=== PATIENT | female | born 1935 | race Caucasian/White ===

== ENCOUNTER 2020-08-24 12:17 | Inpatient (IN) | payer BC ==
[~2020-08-24] VITALS: Ht 162.6 cm; Wt 75.7 kg
[2020-08-24] MEDS ORDERED: COREG (12:31)
[2020-08-24] MEDS ORDERED: LIPITOR (12:31)
[2020-08-24] MEDS ORDERED: ELIQUIS (12:31)
[2020-08-24] MEDS ORDERED: IV NORMAL SALINE 500 ML BAG IV ONE (13:00)
[2020-08-24] MEDS ORDERED: ASPI81TA31 PO (13:03)
[2020-08-24] MEDS ORDERED: CENTRUM SILVER (13:03)
[2020-08-24 13:29] LABS: BASOPHILS % (AUTO) 0.1 % (0.0-2.0); EOSINOPHILS # (AUTO) 0.1 K/uL (0.0-0.7); EOSINOPHILS % (AUTO) 1.6 % (0.0-7.0); HEMATOCRIT 35.1 % (31.2-41.9); HEMOGLOBIN 11.3 g/dL (10.9-14.3); LYMPHOCYTES # (AUTO) 0.8 K/uL (20.0-40.0); LYMPHOCYTES % (AUTO) 11.1 % (20.5-51.5); MEAN CORPUSCULAR HEMOGLOBIN 28.4 uug (24.7-32.8); MEAN CORPUSCULAR HGB CONC 32 g/dL (32.3-35.6); MONOCYTES # (AUTO) 0.6 K/uL (2.0-10.0); MONOCYTES % (AUTO) 8.4 % (0.0-11.0); NEUTROPHILS # (AUTO) 5.9 K/uL (1.8-8.9); NEUTROPHILS % (AUTO) 78.8 % (38.5-71.5); PLATELET COUNT (AUTO) 325 K/uL (179-408); RED BLOOD CELL COUNT(AUTO) 3.99 MIL/uL (3.63-4.92); WHITE BLOOD COUNT (AUTO) 7.5 K/uL (3.8-11.8)
[2020-08-24 14:03] LABS: BILIRUBIN,DIRECT 0.2 mg/dL (0.0-0.2); BILIRUBIN,TOTAL 0.7 mg/dL (0.2-1.0); CREATININE 0.6 mg/dL (0.6-1.3); POTASSIUM 3.5 mmol/L (3.5-5.1); TOTAL PROTEIN, SERUM 7.4 g/dL (6.4-8.2)
[2020-08-24] MEDS ORDERED: FUROSEMIDE 40 MG/4 ML VIAL IV ONE (14:45)
[2020-08-24] MEDS ORDERED: FUROSEMIDE 40 MG/4 ML VIAL ONE (14:50)
[2020-08-24] MEDS ORDERED: NITROGLYCERIN 0.4 MG/TAB BOTTLE SL ONE ×2 (15:16→15:17)
--- NOTE | 2020-08-24 15:35 | NUR ---
SAROJ GONZALEZ ADMITTED PT TO TELE.
--- NOTE | 2020-08-24 15:36 | NUR ---
PT AMBULATED TO BATHROOM X2 WITH ASSISSTANCE.
[2020-08-24 16:02] LABS: *BILIRUBIN,URIN NEGATIVE (NEGATIVE); *BLOOD, URINE NEGATIVE (NEGATIVE); *CLARITY,URINE CLEAR (CLEAR); *COLOR,URINE YELLOW (YELLOW); *KETONES,URINE NEGATIVE (NEGATIVE); *UROBILINOGEN,URINE 0.2 E.U./dl (NORMAL); LEUKOCYTE ESTERASE ,URINE NEGATIVE (NEGATIVE); NITRITE, URINE NEGATIVE (NEGATIVE); UGLUCOSE NEGATIVE (NEGATIVE)
--- NOTE | 2020-08-24 16:20 | NUR ---
GAVE REPORT TO VALENTÍN TO TRANSFER THE PT TO FLOOR
--- NOTE | 2020-08-24 16:26 | NUR ---
PT DAUGHTER HERE REQUESTING TO TAKE THE PT TO [facility] WHERE HIS DOCTOR IS.
[2020-08-24] MEDS ORDERED: ONDANSETRON 4 MG/2 ML VIAL IV PRN (17:00)
[2020-08-24] MEDS ORDERED: ACETAMINOPHEN 325 MG TABLET PO PRN (17:00)
[2020-08-24] MEDS ORDERED: MAGNESIUM HYDROXIDE 30 ML LIQUID UDC PO PRN (17:00)
[2020-08-24] MEDS ORDERED: Z GUARD REMEDY PASTE 57 GM TUBE TOP PRN (17:00)
--- NOTE | 2020-08-24 17:00 | NUR ---
PT DAUGHTER SAID THAT THEY DECIDED TO KEEP THE PT HERE.
--- NOTE | 2020-08-24 17:04 | NUR ---
PT DAUGHTER STILL WORKING ON TAKING THE PT AMA.
[2020-08-24] MEDS: CEFTRIAXONE 1 G in IV DEXTROSE 5% 50 ML IV SCH (17:15)
[2020-08-24] MEDS ORDERED: CEFTRIAXONE /D5W 50ML IVPB **ER PYXIS IV ONE (17:17)
--- NOTE | 2020-08-24 17:19 | NUR ---
DR. KYLE AT BEDSIDE TALKING TO PT AND DAUGHTER.
--- NOTE | 2020-08-24 17:26 | NUR ---
PT DAUGHTER BROUGHT THE MED LIST, WILL UPDATE THE MED RECON.
--- NOTE | 2020-08-24 17:28 | NUR ---
PT DAUGHTER INFO: EDMOND SANCHEZ [phone]
[2020-08-24] MEDS ORDERED: FUROSEMIDE 40 MG/4 ML VIAL IV SCH (17:30)
--- NOTE | 2020-08-24 17:30 | NUR ---
PT TRANSFERED TO FLOOR IN STABLE CONDITION.
[2020-08-24] MEDS ORDERED: CLON0.1T PO (17:33)
[2020-08-24] MEDS ORDERED: LISI40TA4 PO (17:33)
[2020-08-24] MEDS ORDERED: ATOR20TA PO (17:33)
[2020-08-24] MEDS ORDERED: MAGN400O6 PO (17:33)
[2020-08-24] MEDS ORDERED: ACET-2605 PO (17:33)
[2020-08-24] MEDS ORDERED: AMLO-212 PO (17:33)
[2020-08-24] MEDS ORDERED: APIX2.5T PO (17:33)
[2020-08-24] MEDS ORDERED: ZOLP5TAB2 PO (17:33)
[2020-08-24] MEDS ORDERED: TRAM50TA2 PO (17:33)
[2020-08-24] MEDS ORDERED: CARV3.12 PO (17:33)
[2020-08-24] MEDS ORDERED: INSU100V39 SQ (17:33)
[2020-08-24] MEDS ORDERED: HYDR-4384 PO (17:33)
--- NOTE | 2020-08-24 18:00 | NUR ---
RECEIVED PATIENT FROM ED BY DAMIEN TO ROOM 319 WITH DX OF CHF PLACED INTO BED FIXED AND MADE COMFORTABLE PATIENT IS ALERT SPEAKS SOME LITHUANIAN MOSTLY BARBADIAN ORIENTED TO ROOM AND FACILITY PROTOCOL DR BANKS AWARE THAT PATIENT IS HERE.
[2020-08-24] MEDS ORDERED: CLONIDINE HCL 0.1 MG TABLET PO PRN (18:15)
[2020-08-24] MEDS ORDERED: HYDROCODONE/APAP 5-325MG TABLET PO PRN (18:15)
[2020-08-24] MEDS ORDERED: ZOLPIDEM 5 MG TABLET PO PRN (18:15)
[2020-08-24] MEDS ORDERED: TRAMADOL HCL 50 MG TABLET PO PRN (18:15)
[2020-08-24] MEDS ORDERED: AMLODIPINE 5 MG TABLET PO SCH (18:15)
[2020-08-24] MEDS ORDERED: LISINOPRIL 20 MG TABLET PO SCH (18:30)
[2020-08-24] MEDS ORDERED: APIXABAN 2.5 MG TABLET PO SCH (18:30)
--- NOTE | 2020-08-24 18:31 | NUR ---
PER PATIENTS GRAND DAUGHTER GIULIA PATIENT IS ON [employer] MVI AND ASA BUT DID NOT KNOW THE DOSE DR MCCALL AWARE STATED WILL ORDER.
[2020-08-24 18:33] VITALS: BP 154/99
[2020-08-24] MEDS: ASPIRIN 81 MG TAB.CHEW PO SCH (18:42)
[2020-08-24 20:00] VITALS: BP 154/97
[2020-08-24] MEDS ORDERED: TICAGRELOR 90 MG TABLET PO SCH (20:00)
[2020-08-24] MEDS: AZITHROMYCIN IV 500 MG in IV DEXTROSE 5% 250 ML IV SCH (20:15)
[2020-08-24] MEDS ORDERED: ATORVASTATIN 20 MG TABLET PO SCH (21:00)
[2020-08-24] MEDS ORDERED: CARVEDILOL 3.125 MG TABLET PO SCH (21:00)
[2020-08-24] MEDS ORDERED: ENOXAPARIN SODIUM 40 MG/0.4 ML DISP.SYRIN SQ SCH (21:00)
[2020-08-25] VITALS: BP 128/77
--- NOTE | 2020-08-25 00:25 | NUR ---
Received pt resting in bed. AAO x3. On 3L O2 via NC, no acute distress noted. Denies pain/ discomfort. Due meds given as ordered. IV on right AC, received IV atb. Safety measures maintained. Call light and personal items within reach. Will continue to monitor.
[2020-08-25 04:00] VITALS: BP 130/78
[2020-08-25 08:00] LABS: BASOPHILS % (AUTO) 0.3 % (0.0-2.0); EOSINOPHILS # (AUTO) 0.2 K/uL (0.0-0.7); EOSINOPHILS % (AUTO) 2.2 % (0.0-7.0); HEMATOCRIT 32.1 % (31.2-41.9); HEMOGLOBIN 10.7 g/dL (10.9-14.3); LYMPHOCYTES # (AUTO) 0.8 K/uL (20.0-40.0); MEAN CORPUSCULAR HEMOGLOBIN 29.2 uug (24.7-32.8); MEAN CORPUSCULAR HGB CONC 33 g/dL (32.3-35.6); MEAN CORPUSCULAR VOLUME 87.7 fL (75.5-95.3); MONOCYTES # (AUTO) 0.6 K/uL (2.0-10.0); MONOCYTES % (AUTO) 8.2 % (0.0-11.0); NEUTROPHILS # (AUTO) 5.8 K/uL (1.8-8.9); NEUTROPHILS % (AUTO) 78.3 % (38.5-71.5); PLATELET COUNT (AUTO) 282 K/uL (179-408); RED BLOOD CELL COUNT(AUTO) 3.66 MIL/uL (3.63-4.92); WHITE BLOOD COUNT (AUTO) 7.5 K/uL (3.8-11.8)
[2020-08-25 08:04] LABS: BILIRUBIN,TOTAL 0.8 mg/dL (0.2-1.0); CREATININE 0.6 mg/dL (0.6-1.3); MAGNESIUM 1.7 mg/dL (1.8-2.4); PHOSPHOROUS 3.9 mg/dL (2.5-4.9); POTASSIUM 3.5 mmol/L (3.5-5.1); TOTAL PROTEIN, SERUM 6.6 g/dL (6.4-8.2)
[2020-08-25] MEDS: FUROSEMIDE 40 MG/4 ML VIAL IV SCH ×2 (08:54→17:08)
[2020-08-25] MEDS: ASPIRIN 81 MG TAB.CHEW PO SCH (08:54)
[2020-08-25] MEDS: TICAGRELOR 90 MG TABLET PO SCH ×2 (08:54→17:08)
[2020-08-25] MEDS: LISINOPRIL 20 MG TABLET PO SCH (08:56)
--- NOTE | 2020-08-25 09:00 | NUR ---
RECEIVED PATIENT IN BED AWAKE ALERT ORIENTED FORGETFUL AT TIMES BUT VERY PLEASANT AND NICE DENIES PAIN OR DISCOMFORTS DANK THIS TIME SHE IS ON O2 AT 2L/M BY NASAL CANULLA WITH SATS AT 94-95 PERCENT DENIES SOB AT THIS TIME CALL LIGHTS AND PERSONAL BELONGINGS ARE WITHIN EASY REACH WILL CONTINUE TO OBSERVE.
[2020-08-25] MEDS: CARVEDILOL 3.125 MG TABLET PO SCH ×2 (09:36→21:06)
[2020-08-25] MEDS: APIXABAN 2.5 MG TABLET PO SCH ×2 (09:46→17:36)
[2020-08-25] MEDS: MAGNESIUM SULFATE/D5W 100 ML IV SCH ×2 (12:12→13:24)
[2020-08-25 12:29] VITALS: BP 116/61
[2020-08-25 15:47] VITALS: BP 107/80
[2020-08-25] MEDS: CEFTRIAXONE 1 G in IV DEXTROSE 5% 50 ML IV SCH (17:04)
[2020-08-25] MEDS: AZITHROMYCIN IV 500 MG in IV DEXTROSE 5% 250 ML IV SCH (17:36)
--- NOTE | 2020-08-25 18:00 | NUR ---
PATIENT TOLERATED IV ANTIBIOTICS ORDERED WITH NO ADVERSE OR ALLERGIC REACTIONS AT THIS TIME ABLE TO AMBULATE TO THE BATHROOM WITH SBA WITH SLOW STEADY GAIT MADE COMFORTABLE NWILL CONTINUE TO OBSERVE.
[2020-08-25 20:00] VITALS: BP 129/78
[2020-08-25] MEDS ORDERED: ATORVASTATIN 20 MG TABLET PO SCH (21:00)
--- NOTE | 2020-08-25 21:48 | NUR ---
Received pt resting in bed. AAO x4. On 3L O2 via NC, no acute distress noted. Denies pain/ discomfort. Pt has IV on right AC hep lock. Due meds given as ordered. Pt ambulates to the bathroom, O2 needed on exertion. Safety measures maintained. Call light and personal items within reach. Will continue to monitor.
[2020-08-26] VITALS: BP 126/79
[2020-08-26 05:08] VITALS: BP 107/56
[2020-08-26 08:00] VITALS: BP 126/82
[2020-08-26] MEDS: FUROSEMIDE 40 MG/4 ML VIAL IV SCH (08:32)
[2020-08-26] MEDS: TICAGRELOR 90 MG TABLET PO SCH (08:33)
[2020-08-26] MEDS: APIXABAN 2.5 MG TABLET PO SCH (08:33)
[2020-08-26] MEDS: ASPIRIN 81 MG TAB.CHEW PO SCH (08:34)
[2020-08-26] MEDS: CARVEDILOL 3.125 MG TABLET PO SCH (08:35)
[2020-08-26] MEDS: LISINOPRIL 20 MG TABLET PO SCH (08:36)
[2020-08-26 11:00] VITALS: BP 108/65
[2020-08-26 11:50] LABS: BASOPHILS # (AUTO) 0.1 K/uL (0.0-8.0); BASOPHILS % (AUTO) 0.7 % (0.0-2.0); EOSINOPHILS # (AUTO) 0.2 K/uL (0.0-0.7); EOSINOPHILS % (AUTO) 2.6 % (0.0-7.0); HEMATOCRIT 34.7 % (31.2-41.9); HEMOGLOBIN 11.1 g/dL (10.9-14.3); LYMPHOCYTES % (AUTO) 11.6 % (20.5-51.5); MEAN CORPUSCULAR HEMOGLOBIN 28.5 uug (24.7-32.8); MEAN CORPUSCULAR HGB CONC 32 g/dL (32.3-35.6); MEAN CORPUSCULAR VOLUME 89.2 fL (75.5-95.3); MONOCYTES # (AUTO) 0.7 K/uL (2.0-10.0); MONOCYTES % (AUTO) 8.1 % (0.0-11.0); NEUTROPHILS # (AUTO) 6.3 K/uL (1.8-8.9); PLATELET COUNT (AUTO) 324 K/uL (179-408); RED BLOOD CELL COUNT(AUTO) 3.89 MIL/uL (3.63-4.92); WHITE BLOOD COUNT (AUTO) 8.2 K/uL (3.8-11.8)
[2020-08-26 12:15] LABS: BILIRUBIN,TOTAL 0.6 mg/dL (0.2-1.0); CREATININE 0.7 mg/dL (0.6-1.3); POTASSIUM 3.8 mmol/L (3.5-5.1); TOTAL PROTEIN, SERUM 7.3 g/dL (6.4-8.2)
--- NOTE | 2020-08-26 17:07 | NUR ---
D/C PICKED UP BY GRANDDAUGHTER. D/C INSTRUCTIONS GIVEN TO PT AND GRANDDAUGHTER BOTH VERBALIZED UNDERSTANDING OF INSTRUCTIONS
[2020-08-27] MEDS ORDERED: FUROSEMIDE 40 MG TABLET PO SCH (09:00)
== END 2020-08-26 15:20 | disposition home or self-care (01) | DRG 291 ==
LOC: ER 12:17 → TRANSITION 15:37 → TELE3 17:17
PROVIDERS: ADMIT Internal Medicine; ATTEND Internal Medicine
DX: I11.0 Hypertensive heart disease with heart failure (principal); J18.9 Pneumonia, unspecified organism; I50.33 Acute on chronic diastolic (congestive) heart failure; Z95.0 Presence of cardiac pacemaker; I25.10 Atherosclerotic heart disease of native coronary artery without angina pectoris; I45.9 Conduction disorder, unspecified; I48.0 Paroxysmal atrial fibrillation; I49.5 Sick sinus syndrome; Z95.5 Presence of coronary angioplasty implant and graft; Z79.01 Long term (current) use of anticoagulants; I42.9 Cardiomyopathy, unspecified
CPT/HCPCS: 36415; 70030-TC; 71045; 83735; 84100; 85025; 85730; 87040; 93005; 93307; A4663; G0378; J0456; J0696; J1940; J3475; J7030; J7040; J7060; U0003